=== PATIENT | male | born 1985 | race Caucasian/White ===

== ENCOUNTER 2017-02-14 03:29 | Emergency (ER) | payer BC ==
[~2017-02-14] VITALS: Ht 170.2 cm; Wt 75.3 kg
[~2017-02-14 03:29] MED LIST: ALBUTEROL SULF8.5 GM IH; AMOXICILLIN875 MG PO; CORTISPORIN EAR10 ML BOTH EARS; DILANTIN100 MG PO; NOHOMEMEDS; PREDNISONE20 MG PO; PROVENTIL HFA6.7 GM IH; no home med
[2017-02-14] MEDS ORDERED: VENTOLIN HFA18 GM IH (04:27)
[2017-02-14] MEDS ORDERED: MEDROL DOSEPAK4 MG PO (04:27)
[2017-02-14 05:53] VITALS: BP 131/95
== END 2017-02-14 05:54 | disposition home or self-care (01) ==
LOC: EME 03:29
DX: J45.909 Unspecified asthma, uncomplicated (principal)
CPT/HCPCS: 71020; 94640; 99281; 99284; J7512

== ENCOUNTER 2017-04-30 04:06 | Emergency (ER) | payer OTHER, BC ==
[~2017-04-30] VITALS: Ht 170.2 cm; Wt 77.4 kg
[~2017-04-30 04:06] MED LIST changes: +MEDROL DOSEPAK4 MG PO; +VENTOLIN HFA18 GM IH
[2017-04-30 06:00] VITALS: BP 127/99
== END 2017-04-30 06:24 | disposition home or self-care (01) ==
LOC: EME 04:06
DX: S20.229A Contusion of unspecified back wall of thorax, initial encounter (principal); W31.89XA Contact with other specified machinery, initial encounter; Y99.0 Civilian activity done for income or pay; Z88.8 Allergy status to other drugs, medicaments and biological substances
CPT/HCPCS: 72070; 72100; 99281; 99284